=== PATIENT | male | born 1950 | race Caucasian/White ===

== ENCOUNTER 2019-07-22 18:02 | Emergency (ER) | payer MEDICARE ==
[~2019-07-22] VITALS: Ht 162.6 cm; Wt 61.0 kg
[~2019-07-22 18:02] MED LIST: ASCO250T8 PO; ATOR40TA71 PO; CALC355O3 PO; DABI150C PO; DRON2.5C10 PO; DULR RC; ERGO400C PO; FERR325T39 PO; FLO0.4C PO; FOLI1TAB16 PO; GABA-532 PO; HYDR-4353 PO; HYDR-4383 PO; IPRA3AMP31 IH; LEVO250T2 PO; LIDOcaine 1% W/epiNEPHrine 1:100,000 20ml vial ONE; MAGN800O PO; MIRT15TA PO; MULT1TAB74 PO; NAPR-1154 PO; OMEP20CA11 PO; POTA10TA36 PO; PROC-8 PO; ZIN220C PO
[2019-07-22] MEDS ORDERED: TETanus/Pertussis (Acell)/Diphther VAC/PF (Tdap-Adult) 0.5ml syringe IM ONE (18:55)
[2019-07-22] MEDS ORDERED: bacitracin 15gm ointment TP ONE (18:55)
[2019-07-22 19:48] VITALS: BP 138/71
== END 2019-07-22 19:50 | disposition home or self-care (01) ==
LOC: ER 18:02
DX: S81.811A Laceration without foreign body, right lower leg, initial encounter (principal); E78.00 Pure hypercholesterolemia, unspecified; I10 Essential (primary) hypertension; J44.9 Chronic obstructive pulmonary disease, unspecified; M19.90 Unspecified osteoarthritis, unspecified site; G89.29 Other chronic pain; Z86.711 Personal history of pulmonary embolism; Z90.49 Acquired absence of other specified parts of digestive tract; Z88.5 Allergy status to narcotic agent; Z79.899 Other long term (current) drug therapy; W22.8XXA Striking against or struck by other objects, initial encounter; Y93.89 Activity, other specified; Y92.89 Other specified places as the place of occurrence of the external cause; Y99.8 Other external cause status
CPT/HCPCS: 12002; 90471; 99283

== ENCOUNTER 2021-04-30 14:39 | Emergency (ER) | payer OTHER, MEDICARE ==
[~2021-04-30] VITALS: Ht 160 cm; Wt 59.1 kg
[~2021-04-30 14:39] MED LIST changes: -ASCO250T8 PO; -ATOR40TA71 PO; -CALC355O3 PO; +CBD OIL PO; -DABI150C PO; +DILT120C10 PO; -DRON2.5C10 PO; -DULR RC; -ERGO400C PO; -FERR325T39 PO; -FLO0.4C PO; -FOLI1TAB16 PO; -GABA-532 PO; -HYDR-4353 PO; -HYDR-4383 PO; +IBUP-24 PO; -IPRA3AMP31 IH; -LEVO250T2 PO; -LIDOcaine 1% W/epiNEPHrine 1:100,000 20ml vial ONE; +LISI40TA13 PO; -MAGN800O PO; -MIRT15TA PO; -MULT1TAB74 PO; -NAPR-1154 PO; -OMEP20CA11 PO; +ONQPUMP ADDCANAL; -POTA10TA36 PO; -PROC-8 PO; -ZIN220C PO
[2021-04-30 15:20] VITALS: BP 114/82
[2021-04-30 16:02] LABS: BASOPHILS # (AUTO) 0.1 X10'3 (0-0.2); BASOPHILS % (AUTO) 0.9 % (0-1); EOSINOPHILS # (AUTO) 0.2 X10'3 (0-0.9); HEMATOCRIT 33.4 % (42.0-52.0); LYMPHOCYTES % (AUTO) 17.5 % (21-51); MEAN CORPUSCULAR HEMOGLOBIN 25.4 PG (27.0-31.0); MEAN CORPUSCULAR HGB CONC 32.9 g/dL (33.0-36.5); MEAN CORPUSCULAR VOLUME 77.3 FL (78-98); MEAN PLATELET VOLUME 6.9 FL (7.4-10.4); MONOCYTES # (AUTO) 0.4 X10'3 (0-0.9); MONOCYTES % (AUTO) 7.4 % (2-12); NEUTROPHILS % (AUTO) 71.2 % (42-75); PLATELET COUNT 299 X10'3 (140-440); RED BLOOD COUNT 4.33 X10'6 (4.70-6.10); RED CELL DISTRIBUTION WIDTH 18.8 % (11.5-14.5); WHITE BLOOD COUNT 5.7 X10'3 (4.5-11.0)
[2021-04-30 16:07] LABS: ALANINE AMINOTRANSFERASE 18 U/L (12-78); ALBUMIN 2.8 G/DL (3.4-5.0); ALBUMIN/GLOBULIN RATIO 0.8 (1.1-1.5); ALKALINE PHOSPHATASE 70 IU/L (46-116); ANION GAP 10 (8-16); ASPARTATE AMINO TRANSFERASE 19 U/L (10-37); BILIRUBIN,TOTAL 0.2 MG/DL (0.1-1.0); BLOOD UREA NITROGEN 21 MG/DL (7-18); BUN/CREATININE RATIO 18.3 (5.4-32.0); CALCIUM 8.6 MG/DL (8.5-10.1); CHLORIDE 113 MMOL/L (99-107); CREATININE 1.15 MG/DL (0.60-1.10); GLUCOSE 86 MG/DL (70-104); LIPASE 344 U/L (73-393); POTASSIUM 3.8 MMOL/L (3.5-5.1); SODIUM 146 MMOL/L (135-145); TOTAL CARBON DIOXIDE 23.3 MMOL/L (24-32); TOTAL PROTEIN 6.4 G/DL (6.4-8.2); eGFR 63 ML/MIN
[2021-04-30 16:08] LABS: CLARITY,URINE CLEAR (Clear); COLOR,URINE STRAW (Yellow); GLUCOSE, URINE NEGATIVE (Neg); KETONES,URINE NEGATIVE (Neg); LEUKOCYTE ESTERASE ,URINE NEGATIVE (Neg); NITRITES, URINE NEGATIVE (Neg); OCCULT BLOOD,URINE MODERATE (Neg); PROTEIN,URINE 100 mg/dl (Neg); UROBILINOGEN,URINE 0.2 E.U/dL (0.2-1.0)
[2021-04-30 16:12] LABS: UA COLLECTION TYPE URINAL
[2021-04-30 16:16] LABS: WBC,URINE 0-4 /HPF (0-4)
[2021-04-30 16:17] LABS: BACTERIA,URINE FEW /HPF (Neg); MUCUS STRANDS NONE SEEN /LPF (Neg); RBC,URINE 20-50 /HPF (0-2); SQUAMOUS EPITHELIAL CELL,UR FEW /LPF (FEW)
[2021-04-30 16:22] LABS: HYPOCHROMASIA 1+; PLATELET ESTIMATE NORMAL; POIKILOCYTOSIS 1+; POLYCHROMASIA FEW
[2021-04-30 16:23] LABS: ANISOCYTOSIS 2+; MICROCYTOSIS 1+
== END 2021-04-30 19:43 | disposition left against medical advice (07) ==
LOC: ER 14:40
DX: R10.9 Unspecified abdominal pain (principal); R19.7 Diarrhea, unspecified; E78.00 Pure hypercholesterolemia, unspecified; I10 Essential (primary) hypertension; J44.9 Chronic obstructive pulmonary disease, unspecified; G89.29 Other chronic pain; M19.90 Unspecified osteoarthritis, unspecified site; Z86.711 Personal history of pulmonary embolism; Z90.49 Acquired absence of other specified parts of digestive tract; Z88.8 Allergy status to other drugs, medicaments and biological substances; Z79.899 Other long term (current) drug therapy
CPT/HCPCS: 36415; 80053; 81001; 83690; 85008; 85025; 99283